=== PATIENT | male | born 2005 | race Asian ===

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

== ENCOUNTER → 2024-02-05 10:59 | Outpatient (REF) | payer OTHER, SELFPAY | LOC: HWRAD 10:59 | PROVIDERS: ATTENDING PHYSICIAN Pediatrics | DX: R10.30 Lower abdominal pain, unspecified (principal) | CPT/HCPCS: 76882 ==

== ENCOUNTER 2024-02-18 21:31 | Emergency (ER) | payer OTHER, SELFPAY ==
[2024-02-18 21:33] VITALS: BP 146/76
[2024-02-18 22:12] VITALS: BP 141/91
--- NOTE | 2024-02-18 22:15 | ED.GENMED ---
History of Present Illness
<Augie Deleon PA-C - Last Filed: 02/19/24 15:28>
General
Chief Complaint: Abdominal Symptoms
Time Seen by Provider: 02/18/24 22:09
History of Present Illness
History of Present Illness:
18-year-old male with history of ulcerative colitis currently on Entyvio presents to the emergency department for evaluation of intermittent episodes of epigastric pain for the past 4 days. Pain seems to be provoked by eating, begins within 10 to
15 minutes at this time fever to have any particular food triggers. Associated fevers, chills, sweats, vomiting, or diarrhea. Does not have any similar history of symptoms with his UC and it has been well-controlled since starting Entyvio 6 months
ago. No prior abdominal surgeries. Denies any bloody stool. Sees GI at [facility]
Past History
<Augie Deleon PA-C - Last Filed: 02/19/24 15:28>
Social History
Tobacco: Non-smoker
Alcohol: None
Drug: None
Review of Systems
<Augie Deleon PA-C - Last Filed: 02/19/24 15:28>
Review of Systems
Allergies reviewed?: Yes
All Other Systems: ROS reviewed and negative except as documented in HPI and ROS
Phy Exam
<Augie Deleon PA-C - Last Filed: 02/19/24 15:28>
Physical Exam
Physical Exam:
GEN: Well appearing, NAD, WDWN
Eyes: PERRLA, EOMs intact, no scleral icterus
HENT: NCAT, oral mucosa moist
Lungs: Normal respiratory effort
Cardiac: RRR, no M/R/G, no peripheral edema. Radial pulses 2+ bilat
Abdomen: S, NT, ND, NABS, no masses or hepatosplenomegaly, negative Ruff sign
Neuro: AO x 3
MSK: No gross deformity or ecchymosis.
Skin: No rashes, petechiae. Normal color, no pallor or jaundice.
Psych: Calm, cooperative, proper hygiene
Course
<Augie Deleon PA-C - Last Filed: 02/19/24 15:28>
Orders/Labs/Results
Orders:
Orders
02/18/24 22:18
Complete Blood Count/No Diff Urgent
Comprehensive Metabolic Panel Urgent
Lipase Urgent
02/18/24 22:26
Mag Hydrox/Al Hydrox/Simeth [Maalox] 30 ml Phenobarb/Hyoscy/Atropine/Scop [] 10 ml Viscous Lidocaine 2% [Xylocaine Viscous Cup] 10 ml PO NOW
02/18/24 22:30
Mag Hydrox/Al Hydrox/Simeth [Maalox] 30 ml .ROUTE .STK-MED ONE
Phenobarb/Hyoscy/Atropine/Scop [] 10 ml .ROUTE .STK-MED ONE
Viscous Lidocaine 2% [Xylocaine Viscous Cup] 15 ml .ROUTE .STK-MED ONE
02/18/24 22:58
Famotidine [Pepcid] 20 mg IV NOW STA
Pantoprazole [Protonix IV] 40 mg IV NOW STA
02/18/24 23:23
Ketorolac [Toradol] 15 mg IV NOW STA
Ondansetron Injectable [Zofran] 4 mg IV NOW STA
02/19/24 00:02
CT Abd/Pel (IV only)-[facility] only Urgent
Reason For Exam: epigastric pain
Abnormal Lab Results
02/18/24
22:18
WBC 11.7 H 10^3/uL
(4.8-10.8)
BUN 24 H mg/dl
(9-20)
Glucose 105 H mg/dl
(70-99)
02/18/24 22:18
02/18/24 22:18
Vital Signs
Initial and Last Documented VS:
Initial Vital Signs
Temp Pulse Resp BP Pulse Ox
98 F 66 18 146/76 100
02/18/24 21:33 02/18/24 21:33 02/18/24 21:33 02/18/24 21:33 02/18/24 21:33
Last Documented Vital Signs
Temp Pulse Resp BP Pulse Ox
98 F 66 18 130/81 99
02/18/24 21:33 02/18/24 21:33 02/18/24 21:33 02/19/24 01:50 02/19/24 01:50
<Nilda Elliott DO - Last Filed: 02/19/24 02:00>
Orders/Labs/Results
Orders:
Orders
02/18/24 22:18
Complete Blood Count/No Diff Urgent
Comprehensive Metabolic Panel Urgent
Lipase Urgent
02/18/24 22:26
Mag Hydrox/Al Hydrox/Simeth [Maalox] 30 ml Phenobarb/Hyoscy/Atropine/Scop [] 10 ml Viscous Lidocaine 2% [Xylocaine Viscous Cup] 10 ml PO NOW
02/18/24 22:30
Mag Hydrox/Al Hydrox/Simeth [Maalox] 30 ml .ROUTE .STK-MED ONE
Phenobarb/Hyoscy/Atropine/Scop [] 10 ml .ROUTE .STK-MED ONE
Viscous Lidocaine 2% [Xylocaine Viscous Cup] 15 ml .ROUTE .STK-MED ONE
02/18/24 22:58
Famotidine [Pepcid] 20 mg IV NOW STA
Pantoprazole [Protonix IV] 40 mg IV NOW STA
02/18/24 23:23
Ketorolac [Toradol] 15 mg IV NOW STA
Ondansetron Injectable [Zofran] 4 mg IV NOW STA
02/19/24 00:02
CT Abd/Pel (IV only)-[facility] only Urgent
Reason For Exam: epigastric pain
Abnormal Lab Results
02/18/24
22:18
WBC 11.7 H 10^3/uL
(4.8-10.8)
BUN 24 H mg/dl
(9-20)
Glucose 105 H mg/dl
(70-99)
02/18/24 22:18
02/18/24 22:18
Vital Signs
Initial and Last Documented VS:
Initial Vital Signs
Temp Pulse Resp BP Pulse Ox
98 F 66 18 146/76 100
02/18/24 21:33 02/18/24 21:33 02/18/24 21:33 02/18/24 21:33 02/18/24 21:33
Last Documented Vital Signs
Temp Pulse Resp BP Pulse Ox
98 F 66 18 130/81 99
02/18/24 21:33 02/18/24 21:33 02/18/24 21:33 02/19/24 01:50 02/19/24 01:50
<Nilda Elliott DO - Last Filed: 02/19/24 02:00>
*Radiology
Radiology exam reviewed: radiology read reviewed (CT of the abdomen pelvis is unremarkable)
*Pulse Oximetry
Patient hypoxic: no
*Critical Care Note
Total Time (30-74mins, 75-104mins- exclusive of procedures): Not Applicable
<Augie Deleon PA-C - Last Filed: 02/19/24 15:28>
Update Note
Update Note:
2322: Pt with continued worsening of upper abd pain despite GI cocktail, PPI and H2 janet. Now writhing in pain, tearful. Labs unremarkable. Low suspicion for biliary disease given pt's hx and age. Will obtain CT to r/o acute abdomen given
dramatic worsening of symptoms
ED Attending Note
<Augie Deleon PA-C - Last Filed: 02/19/24 15:28>
-
Portions of this chart may have been created with voice recognition software.� Occasional wrong word or��sound alike� substitutions may have occurred due to the inherent limitations of voice recognition software.
<Nilda Elliott DO - Last Filed: 02/19/24 02:00>
ED Attending Note
Patient seen and examined by attending physician: Yes
I performed a history and physical exam of patient and discussed management with resident, I reviewed resident's note and agree with documented findings and plan of care.: Yes
ED Attending Note:
CT abdomen pelvis shows no acute intra-abdominal pathology.
Patient continues with primarily upper abdominal pain and admits that this is much worse with movement, more so with sitting up and improved with lying still.
Overall appears quite comfortable, resting comfortably.
He does workout on a regular basis but states he has been avoiding abdominal/crunch moves due to previous abdominal wall muscle strain a month ago.
With reassuring labs, unremarkable CT abdomen and pelvis I suspect either an element of gastritis versus abdominal wall muscle strain. There is no evidence of abdominal wall muscle rupture, no hernia and no acute intra-abdominal pathology.
Encourage supportive measures, initiate a short course of Protonix for potential gastritis and recommend Tylenol as needed for pain, local heat, avoid heavy lifting, abdominal exercises.
Prompt follow-up with PCP for recheck.
Patient has been provided with an out of school note for the next 2 days with plan to return on February 20.
Discharge Plan
Departure
Patient Disposition: Home (Routine Discharge)
Date of Disposition: 02/19/24
Time of Disposition: 01:55
Patient with high blood pressure during this ER visit?: No
Condition: Good
Discharge Problem:
Gastritis, abdominal wall muscle strain
Instructions: Gastritis (DC), Abdominal Muscle Strain ED
Prescriptions:
New
pantoprazole 40 mg tablet,delayed release (DR/EC)
40 mg PO DAILY Qty: 14 0RF
No Action
ibuprofen 600 mg tablet
600 mg PO Q8H PRN (Reason: pain) Qty: 14 0RF
Referrals:
Alvarez Quintana MD [Family Provider] - Call in 1-3 days for appt
Stand Alone Forms: Back to School
Interventions
Interventions:
*Risk Screen - Suicide Last Done: 02/18/24 21:33
*General Assessment Last Done: 02/18/24 21:33
*Neglect/Abuse Screening Last Done: 02/18/24 21:33
ED- Fall Risk Assessment Last Done: 02/18/24 22:20
*ED COVID-19 Vaccine History Last Done: 02/18/24 22:20
*Nursing Disposition Last Done: 02/19/24 02:03
BS-Adbmmt-Bauayfrgct Assessment Last Done: 02/18/24 22:20
Discharge Date and Time
Discharge Date/Time: 02/19/24 02:04
Print Language: NEPALESE
[2024-02-18 22:19] VITALS: BMI 23.8
[2024-02-18 22:27] LABS: Hematocrit 43.1 % (39.0-52.0); Hemoglobin 15.6 g/dL (13.0-18.0); Mean Corp Hgb Conc. 36.2 g/dL (33.0-37.0); Mean Corpuscular Volume 82.9 fL (80.0-94.0); Mean Platelet Volume 9.7 fL (7.4-10.4); Platelet Count 210 10^3/uL (130-400); Red Cell Dist. Width 12.2 % (11.5-14.5); White Blood Cell Count 11.7 10^3/uL (4.8-10.8)
[2024-02-18] MEDS: MAALOX 50 PO (22:32)
[2024-02-18 22:47] LABS: ALT (SGPT) 25 U/L (0-50); AST (SGOT) 34 U/L (17-59); Albumin 4.7 g/dl (3.5-5.0); Alkaline Phosphatase 55 U/L (38-126); Blood Urea Nitrogen 24 mg/dl (9-20); Calcium 9.7 mg/dl (8.4-10.2); Carbon Dioxide 29 mmol/L (22-30); Chloride 103 mmol/L (98-107); Estimated Creatinine Clearance 106 ml/min; Glucose 105 mg/dl (70-99); Lipase 69 U/L (23-300); Potassium 4.1 mmol/L (3.5-5.1); Sodium 141 mmol/L (135-145); Total Bilirubin 1.2 mg/dl (0.2-1.3); Total Protein 7.1 g/dl (6.3-8.2); eGFR > 60.00
[2024-02-18] MEDS: PROTONIX IV 40 MG IV (23:05)
[2024-02-18] MEDS: PEPCID 20 MG IV (23:09)
[2024-02-18] MEDS: TORADOL 15 MG IV (23:26)
[2024-02-18] MEDS: ZOFRAN 4 MG IV (23:28)
[2024-02-19 01:50] VITALS: BP 130/81
== END 2024-02-19 02:04 | disposition home or self-care (01) ==
LOC: EMR 21:31
PROVIDERS: Physician Assistant; EMERGENCY PHYSICIAN Emergency Medicine; FAMILY PHYSICIAN Pediatrics
DX: K29.70 Gastritis, unspecified, without bleeding (principal); S39.011A Strain of muscle, fascia and tendon of abdomen, initial encounter; X58.XXXA Exposure to other specified factors, initial encounter; K51.90 Ulcerative colitis, unspecified, without complications
CPT/HCPCS: 99284; 96374; 96375; 74177; 80053; 83690; 85027; Q9967